=== PATIENT | female | born 1935 | race Caucasian/White ===

== ENCOUNTER 2016-11-23 19:39 | Emergency (ER) | payer MEDICARE ==
[2016-11-23] MEDS ORDERED: NS 0.9% 1000 ML* 2,000 ML IV ONE (20:11)
[2016-11-23 20:56] LABS: Hematocrit 38 % (35-47); Hemoglobin 12.7 g/dl (12.0-16.0); Mean Corpuscular HGB Conc 33 g/dl (31-36); Mean Corpuscular Hemoglobin 30 pg (27-31); Mean Corpuscular Volume 90 fL (80-97); Mean Platelet Volume 9 um3 (7.4-10.4); Red Blood Count 4.29 10^6/ul (4.0-5.4); Red Cell Distribution Width 14 % (10.5-15); White Blood Count 5.3 10^3/ul (3.5-10.8)
[2016-11-23 21:08] LABS: Albumin 3.9 g/dL (3.2-5.2); BUN/Creatinine Ratio 21.6 (8-20); Calcium 9.4 mg/dL (8.6-10.3); EGFR African American 96.4 (>60); Globulin 3.9 g/dL (2-4); Potassium 3.7 mmol/L (3.5-5.0); Total Bilirubin 0.3 mg/dL (0.2-1.0); Total Protein 7.8 g/dL (6.4-8.9)
[2016-11-23 21:31] LABS: TSH (Thyroid Stimulating Horm) 6.24 mcIU/mL (0.34-5.60)
--- NOTE | 2016-11-23 21:45 | RAD ---
Indication: Syncope, pneumonia. 2 views of the chest including dual energy PA views demonstrates bibasilar atelectasis. There may BE early pneumonia in the right lung base. IMPRESSION: There may BE early pneumonia in the right lung base.
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
[2016-11-23 22:33] VITALS: BP 140/65
== END 2016-11-23 22:33 | disposition home or self-care (01) ==
LOC: ED 19:39
DX: R55 Syncope and collapse (principal); E86.0 Dehydration; E05.90 Thyrotoxicosis, unspecified without thyrotoxic crisis or storm
CPT/HCPCS: 36415; 71020; 80053; 83605; 83735; 83880; 84443; 84484; 85025; 93005; 96360; 99282

== ENCOUNTER 2019-07-09 05:42 | Day surgery (SDC) | payer MEDICARE ==
--- NOTE | 2019-06-25 12:29 | HP ---
AMENDED REPORT NOW INCLUDES DESIGNATED COSIGNER - ESIGNED BEFORE ADJUSTMENTS HISTORY AND PHYSICAL: DATE OF ADMISSION/SURGERY: 07/09/19 DATE OF OFFICE VISIT: 06/24/19 SURGEON: Cheri Serrano MD * (DICTATED BY LULI MOREIRA) PROCEDURE: Left knee removal of hardware. CHIEF COMPLAINT: Left knee pain. HISTORY OF PRESENT ILLNESS: Ms. 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 She elected to proceed with a removal of hardware from her left knee. PAST MEDICAL HISTORY: Asthma and insomnia. PAST SURGICAL HISTORY: ORIF of left tibial plateau; throat surgery, unknown. CURRENT MEDICATIONS: 1. Loratadine 10 mg as needed. 2. Ibuprofen as needed. 3. Melatonin 3 mg nightly. 4. Calcium with vitamin D. 5. Premarin twice a week. ALLERGIES: No known drug allergies. FAMILY HISTORY: Denies. SOCIAL HISTORY: She is an 84-year-old female. She lives alone at [facility]. She does not smoke. REVIEW OF SYSTEMS: A complete 14-point review of systems was reviewed with the patient. It was all negative or noncontributory. She denies history of DVT, PE , hepatitis, HIV, or anesthesia problems. PHYSICAL EXAMINATION GENERAL: She is well developed, well nourished, in no acute distress. She is alert and oriented x3. Pleasant mood and appropriate affect. VITAL SIGNS: She stands 64 inches tall, weighs 114 pounds. Her blood pressure is 140/68, her heart rate is 76. HEENT: Normocephalic, atraumatic. NECK: Supple. No palpable lymph nodes. PULMONARY: Lungs are clear to auscultation bilaterally. CARDIO: Regular rate and rhythm. Strong S1, S2. ABDOMEN: Soft, nontender, nondistended. MUSCULOSKELETAL: Left lower extremity: The skin is intact. There are no open wounds or abrasions. There is a well-healed scar. She has a 17-degree valgus deformity. Range of motion is 15 to 110 degrees of flexion. She has a palpable plate and screws over the lateral knee. She is able to dorsiflex and plantarflex, has a 2+ dorsalis pedis pulse and intact sensation. NEUROLOGIC: She is alert and oriented x3. ASSESSMENT AND PLAN: Ms. Martinez is an 84-year-old female with painful hardware of the left knee. She has elected to have a removal of hardware of left knee, which is scheduled for 07/09/[address] Serrano discussed the risks and benefits of surgery at today's visit and all of her questions were answered and she will follow up with Dr. Serrano 2 weeks after the surgery. LULI MOREIRA [id number]/[facility] #: [id number] MTDJocelyn
[2019-07-09] MEDS ORDERED: Lactated Ringers 1000 ML Bag* 1,000 ML IV SCH (06:00)
[2019-07-09] MEDS ORDERED: Famotidine IV* 10 MG/ML 2 ML (20 mg) IV ONE (06:00)
[2019-07-09] MEDS ORDERED: ceFAZolin 2 GM in NS PREMIX(*) 2 GM/100 ML BAG IVPB ONE (06:07)
[2019-07-09] MEDS ORDERED: Famotidine IV* 10 MG/ML 2 ML (20 mg) ONE (06:07)
[2019-07-09] MEDS ORDERED: Ketorolac INJ* 30 MG/ML 1 ML VIAL ONE (07:03)
[2019-07-09] MEDS ORDERED: Propofol* 10 MG/ML 20 ML BTL ONE (07:03)
[2019-07-09] MEDS ORDERED: KETAMINE HCL* 50 MG/ML 10 ML VIAL ONE (07:03)
[2019-07-09] MEDS ORDERED: Ondansetron INJ* 2 MG/ML VIAL ONE (07:03)
[2019-07-09] MEDS ORDERED: fentaNYL* 50 MCG/ML 2 ML VIAL (100 MCG VIAL) ONE (07:03)
[2019-07-09] MEDS ORDERED: Dexamethasone IV* 4 MG/ML 1 ML (4 MG) ONE (07:03)
[2019-07-09] MEDS ORDERED: Midazolam* 1 MG/ML 5 ML VIAL (5 MG) ONE (07:03)
[2019-07-09] MEDS ORDERED: Lidocaine 2% PF * 5 ML VIAL ONE (07:03)
[2019-07-09] MEDS ORDERED: Chloroprocaine 2%* 20 ML VIAL ONE (07:32)
[2019-07-09] MEDS ORDERED: ROPIVACAINE 5 MG/ML 30 ML BTL (0.5%) ONE (08:00)
[2019-07-09] MEDS ORDERED: Naloxone* 0.4 MG/ML 1 ML VIAL IV PRN (08:11)
[2019-07-09] MEDS ORDERED: fentaNYL* 50 MCG/ML 2 ML VIAL (100 MCG VIAL) IV PRN (08:11)
[2019-07-09] MEDS ORDERED: Acetaminophen IV 1GM/100ML * 1,000 MG/100 ML VIAL IVPB ONE (08:11)
[2019-07-09] MEDS ORDERED: Ondansetron INJ* 2 MG/ML VIAL IV PRN (08:11)
[2019-07-09 09:41] VITALS: BP 155/77
[2019-07-09] MEDS ORDERED: Buffered Lidocaine 1% SYRIN* 1 ML/SYRINGE INTRADERM ONE (10:33)
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
== END 2019-07-09 10:28 | disposition home or self-care (01) ==
LOC: OR 05:42
PROVIDERS: ATTEND Orthopaedic Surgery Adult Reconstructive Orthopaedic Surgery
DX: T84.84XA Pain due to internal orthopedic prosthetic devices, implants and grafts, initial encounter (principal); Y83.1 Surgical operation with implant of artificial internal device as the cause of abnormal reaction of the patient, or of later complication, without mention of misadventure at the time of the procedure; M17.32 Unilateral post-traumatic osteoarthritis, left knee; I10 Essential (primary) hypertension; J45.909 Unspecified asthma, uncomplicated; E78.5 Hyperlipidemia, unspecified
CPT/HCPCS: 76000; 88300; J0690; J1100; J1885; J2250; J2400; J2405; J2704; J2795; J3010

== ENCOUNTER 2019-12-22 12:33 | Observation (INO) ==
[~2019-12-22 12:33] MED LIST: Bupivacaine 0.5% SDV PF 30ML VIAL ONE; Lactated Ringers 1000 ml BAG 1,000 ML IV SCH
[2019-12-22] MEDS ORDERED: ceFAZolin 2 GM PREMIX in ORs 2 GM/50 ML BAG ONE (13:01)
[2019-12-22] MEDS ORDERED: fentaNYL 100 mcg/2 ml 50 MCG/ML VIAL ONE (13:21)
[2019-12-22] MEDS ORDERED: Ondansetron 4 mg VIAL 2 MG/ML 2 ml VIAL ONE (15:05)
[2019-12-22] MEDS ORDERED: Lidocaine 2% PF 5 ML VIAL ONE (15:05)
[2019-12-22] MEDS ORDERED: Phenylephrine 40 mcg/mL 10mL (400mcg) SYRINGE ONE ×2 (15:05→16:03)
[2019-12-22] MEDS ORDERED: Dexamethasone IV 4 MG/ML VIAL 1 ml VIAL ONE (15:05)
[2019-12-22] MEDS ORDERED: Sevoflurane BOTTLE ONE (15:42)
[2019-12-22] MEDS ORDERED: Magnesium Hydroxide LIQ 30 ML UDC PO PRN (16:29)
[2019-12-22] MEDS ORDERED: diPHENhydraMINE IV 50 MG/ML 1 ml VIAL (BENADRYL) IV PRN (16:29)
[2019-12-22] MEDS ORDERED: Ondansetron ODT 4 mg TAB 4 MG TAB PO PRN (16:29)
[2019-12-22] MEDS ORDERED: Morphine 2 MG/ML SYRINGE IV PRN (16:29)
[2019-12-22] MEDS ORDERED: Ondansetron 4 mg VIAL 2 MG/ML 2 ml VIAL IV PRN (16:29)
[2019-12-22] MEDS ORDERED: diPHENhydraMINE 25 mg TAB PO PRN (16:29)
[2019-12-22] MEDS ORDERED: Lactulose 30 ml UDC PO PRN (16:29)
[2019-12-22] MEDS ORDERED: Lactated Ringers 1000 ml BAG 1,000 ML IV SCH (17:00)
[2019-12-22] MEDS ORDERED: Senna TAB 8.6 mg TAB PO PRN (19:19)
[2019-12-22] MEDS: oxyCODONE/Acetamin 5/325 mg TAB PO PRN (19:25)
[2019-12-22] MEDS: Magnesium Hydroxide LIQ 30 ML UDC PO SCH (21:32)
[2019-12-22] MEDS: ceFAZolin 1 GM ADVAN(*) 1 GM in NS 0.9% 50 ML 50 ML IVPB SCH (22:22)
[2019-12-23 05:48] LABS: Hematocrit 35 % (35-47); Hemoglobin 11.9 g/dL (12.0-16.0); Mean Platelet Volume 8.3 fL (7.4-10.4); Platelet Count 350 10^3/uL (150-450)
[2019-12-23 06:05] LABS: Calcium 9.3 mg/dL (8.6-10.3); EGFR Non-African American 79.3 (>60); Potassium 3.7 mmol/L (3.5-5.0)
[2019-12-23] MEDS: ceFAZolin 1 GM ADVAN(*) 1 GM in NS 0.9% 50 ML 50 ML IVPB SCH ×2 (06:06→14:09)
[2019-12-23] MEDS: oxyCODONE/Acetamin 5/325 mg TAB PO PRN (06:07)
[2019-12-23] MEDS ORDERED: Vitamin THERAPEUTIC TAB PO SCH (09:00)
[2019-12-23] MEDS: Magnesium Hydroxide LIQ 30 ML UDC PO SCH (09:05)
[2019-12-23 11:46] VITALS: BP 152/66
== END 2019-12-23 14:55 | disposition home or self-care (01) ==
LOC: AA 12:33 → INTOOBSV 12:33 → SSU 17:55
PROVIDERS: ADMIT Orthopaedic Surgery Adult Reconstructive Orthopaedic Surgery; ATTEND Orthopaedic Surgery Adult Reconstructive Orthopaedic Surgery

== ENCOUNTER 2020-12-06 18:52 | Observation (INO) ==
[2020-12-06] MEDS ORDERED: NS 0.9% 1000 ml BAG 1,000 ML IV ONE (18:56)
[2020-12-06] MEDS ORDERED: Iodixanol (CONTRAST) 320 MG/ML 100 ML SDV IV ONE (19:10)
[2020-12-06 19:19] LABS: ABS Basophils 0.1 10^3/ul (0-0.2); ABS Eosinophils 0.2 10^3/ul (0-0.6); ABS Lymphocytes 1.7 10^3/ul (1.0-4.8); ABS Monocytes 0.5 10^3/ul (0-0.8); ABS Neutrophils 3.3 10^3/ul (1.5-7.7); Eosinophil % 3.6 %; Hematocrit 38 % (35-47); Hemoglobin 12.9 g/dL (12.0-16.0); Lymphocyte % 29.6 %; Mean Corpuscular HGB Conc 34 g/dL (31-36); Mean Corpuscular Hemoglobin 30 pg (27-31); Mean Corpuscular Volume 88 fL (80-97); Mean Platelet Volume 8.5 fL (7.4-10.4); Nucleated Red Blood Cells % 0.1; Platelet Count 443 10^3/uL (150-450); Red Blood Count 4.36 10^6 /uL (3.70-4.87); Red Cell Distribution Width 13 % (10-15); White Blood Count 5.7 10^3/uL (3.5-10.8)
[2020-12-06 19:29] LABS: Activated Partial Thrombo Time 24.2 seconds (26.0-38.0); INR 1.09 (0.82-1.09)
[2020-12-06 20:08] LABS: Albumin 3.8 g/dL (3.2-5.2); Calcium 9.5 mg/dL (8.6-10.3); EGFR African American 91.2 (>60); EGFR Non-African American 75.4 (>60); Globulin 3.7 g/dL (2-4); HDL Cholesterol 66.6 mg/dL; Total Bilirubin 0.4 mg/dL (0.2-1.0); Total Protein 7.5 g/dL (6.4-8.9)
[2020-12-06 20:14] LABS: Potassium 3.9 mmol/L (3.5-5.0)
[2020-12-06 20:33] LABS: Urine Appearance Clear; Urine Bilirubin Negative (Negative); Urine Blood Negative (Negative); Urine Color Yellow; Urine Glucose Negative (Negative); Urine Ketones Negative (Negative); Urine Nitrite Negative (Negative); Urine Protein Negative (Negative); Urine Specific Gravity 1.053 (1.002-1.030); Urine Urobilinogen Negative (Negative)
[2020-12-07] MEDS: Heparin 5000 UNITS/ML 1 mL VIAL SUBCUT SCH ×3 (05:48→20:06)
[2020-12-07 05:57] LABS: ABS Eosinophils 0.1 10^3/ul (0-0.6); ABS Lymphocytes 1.3 10^3/ul (1.0-4.8); ABS Monocytes 0.4 10^3/ul (0-0.8); ABS Neutrophils 2.5 10^3/ul (1.5-7.7); Eosinophil % 2.4 %; Hematocrit 39 % (35-47); Hemoglobin 12.8 g/dL (12.0-16.0); Lymphocyte % 31.1 %; Mean Corpuscular HGB Conc 33 g/dL (31-36); Mean Corpuscular Hemoglobin 29 pg (27-31); Mean Corpuscular Volume 89 fL (80-97); Mean Platelet Volume 8.6 fL (7.4-10.4); Nucleated Red Blood Cells % 0.1; Platelet Count 417 10^3/uL (150-450); Red Blood Count 4.37 10^6 /uL (3.70-4.87); Red Cell Distribution Width 13 % (10-15); White Blood Count 4.3 10^3/uL (3.5-10.8)
[2020-12-07 06:00] LABS: Calcium 8.9 mg/dL (8.6-10.3); EGFR Non-African American 111.5 (>60); HDL Cholesterol 60.9 mg/dL; Potassium 3.7 mmol/L (3.5-5.0)
[2020-12-07] MEDS ORDERED: Aspirin EC 81 mg TAB.EC (enteric coated) PO SCH (09:00)
[2020-12-07] MEDS: Calcium/Vitamin D TAB 250/125 TAB PO SCH ×2 (10:10→20:06)
[2020-12-07] MEDS: hydrALAZINE 20 mg/ml 1 ML Vial IV IV SLOW PU PRN (23:50)
[2020-12-08] MEDS ORDERED: hydrALAZINE 20 mg/ml 1 ML Vial IV IV SLOW PU ONE (03:45)
[2020-12-08] MEDS: Heparin 5000 UNITS/ML 1 mL VIAL SUBCUT SCH ×3 (05:51→21:04)
[2020-12-08] MEDS: Calcium/Vitamin D TAB 250/125 TAB PO SCH ×2 (08:43→21:02)
[2020-12-08] MEDS: hydrALAZINE 20 mg/ml 1 ML Vial IV IV SLOW PU PRN (18:19)
[2020-12-09] MEDS: hydrALAZINE 20 mg/ml 1 ML Vial IV IV SLOW PU PRN (00:14)
[2020-12-09] MEDS: Heparin 5000 UNITS/ML 1 mL VIAL SUBCUT SCH (05:55)
[2020-12-09] MEDS: Calcium/Vitamin D TAB 250/125 TAB PO SCH (08:40)
[2020-12-09 09:23] VITALS: BP 157/66
== END 2020-12-09 13:20 ==
LOC: MEDTELE 18:52 → ED 18:52 → MEDTELE 12-07 02:50
PROVIDERS: ADMIT Internal Medicine; ATTEND Hospitalist